=== PATIENT | female | born 1975 | race Two or more races ===

== ENCOUNTER 2016-12-02 20:27 | Emergency (ER) | payer BC, OTHER ==
[~2016-12-02] VITALS: Ht 154.9 cm; Wt 42.6 kg
[2016-12-02 20:30] VITALS: BP 122/60
[2016-12-02] MEDS ORDERED: FLUORESCEIN SODIUM OPHTH 1 EA STRIP ONE (20:31)
--- NOTE | 2016-12-02 20:35 | NUR ---
dr salazar at bedside for eval.
== END 2016-12-02 21:01 | disposition home or self-care (01) ==
LOC: ER 20:27
DX: S05.01XA Injury of conjunctiva and corneal abrasion without foreign body, right eye, initial encounter (principal); X58.XXXA Exposure to other specified factors, initial encounter; Y92.89 Other specified places as the place of occurrence of the external cause; Y93.89 Activity, other specified; Y99.8 Other external cause status
CPT/HCPCS: A4606; Z7610

== ENCOUNTER 2016-12-30 19:25 | Emergency (ER) | payer BC ==
[~2016-12-30] VITALS: Ht 154.9 cm; Wt 42.6 kg
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
--- NOTE | 2016-12-30 19:47 | NUR ---
Jorge DEGRAS, ACNP-BC IS AT THE BEDSIDE
[2016-12-30 20:14] VITALS: BP 114/65
== END 2016-12-30 20:15 | disposition home or self-care (01) ==
LOC: ER 19:26
DX: S16.1XXA Strain of muscle, fascia and tendon at neck level, initial encounter (principal); S50.811A Abrasion of right forearm, initial encounter; F41.9 Anxiety disorder, unspecified; M26.609 Unspecified temporomandibular joint disorder, unspecified side; V43.52XA Car driver injured in collision with other type car in traffic accident, initial encounter; Y93.89 Activity, other specified; Y92.488 Other paved roadways as the place of occurrence of the external cause; Y99.8 Other external cause status
CPT/HCPCS: A4606; Z7610